=== PATIENT | male | born 1995 | race Caucasian/White ===

== ENCOUNTER 2016-10-29 11:16 | Emergency (ER) | payer MEDICAID ==
[2016-10-29 11:25] VITALS: BP 143/80
[2016-10-29] MEDS ORDERED: PENICILLIN G BENZATHINE 1.2 MILLION UNIT/2 ML DISP.SYRIN IM ONE (11:38)
--- NOTE | 2016-10-29 11:39 | ER Document Report ---
ED General - General Chief Complaint: Sore Throat Stated Complaint: THROAT PAIN,FEVER Mode of Arrival: Ambulatory Information source: Patient Notes: Patient is a 20 year old male who presents with sore throat that is worse when swallowing that has been present for the past 6 days. He states it has been worsening over the past 1-2 days. Reports associated congestion, cough and subjective intermittent fevers for the past 10 days, unsure of Tmax. He has tried OTC robitussin and sinus medication with no relief. Denies otalagia, difficulty swallowing, difficulty breathing, chest pain, n/v/d. Denies sick contacts TRAVEL OUTSIDE OF THE [place] IN LAST 30 DAYS: No - Related Data Allergies/Adverse Reactions: No Known Allergies Allergy (Unverified 10/29/16 11:24) Past Medical History - Social History Smoking Status: Unknown if Ever Smoked Family History: Reviewed & Not Pertinent Patient has suicidal ideation: No Patient has homicidal ideation: No Renal/ Medical History: Denies: Hx Peritoneal Dialysis Review of Systems - Review of Systems Constitutional: See HPI EENT: See HPI Cardiovascular: No symptoms reported Respiratory: No symptoms reported Gastrointestinal: No symptoms reported Genitourinary: No symptoms reported Male Genitourinary: No symptoms reported Musculoskeletal: No symptoms reported Skin: No symptoms reported Hematologic/Lymphatic: No symptoms reported Neurological/Psychological: No symptoms reported Physical Exam - Vital signs Vitals: Temp Pulse Resp BP Pulse Ox 98.4 F 102 H 20 143/80 H 96 10/29/16 11:24 10/29/16 11:24 10/29/16 11:24 10/29/16 11:24 10/29/16 11:24 Interpretation: Hypertensive, Tachycardic - Notes Notes: PHYSICAL EXAM: CONSTITUTIONAL: Alert and oriented, well-appearing and in no acute distress. Appears uncomfortable but non-toxic. HENT: Normocephalic, atraumatic. Ear canals without erythema or foreign body, TMs pearly euceda with good bony landmarks. Nares clear without erythema, septal hematoma or deviation, airway patent. Oropharynx erythematous with bilateral tonsillar exudate and enlargement, no malocclusion. Trachea midline. Uvula midline. Moist mucous membranes. EYES: Pupils equal round and reactive to light, EOM intact. Sclera anicteric, conjunctiva are normal. No entrapment. NECK: supple with b/l anterior cervical lymphadenopathy. No midline tenderness or paraspinous muscle spasms. ROM intact. HEART: Regular rate and rhythm without murmurs. LUNGS: CTAB and equal. No wheezes, rales or rhonchi. EXTREMITIES: Normal range of motion, no pitting edema. No cyanosis. Cap Refill < 3 seconds. SKIN: Warm and dry. Normal turgor. No rashes or lesions noted. Course - Re-evaluation Re-evalutation: 10/29/16 11:51 Patient seen and examined. Afebrile, non-toxic in appearance. Exam of oropharynx consistent with strep pharyngitis - noted bilateral tonsillar exudates and enlargement. Uvula midline, no malocclusion, no respiratory distress noted. Speaking in full sentences without difficulty. Offered IM Bicillin, patient requested oral antibiotics. At this time, will discharge with return precautions and follow-up recommendations. Verbal discharge instructions given at the bedside and opportunity for questions given. Medication warnings reviewed. Patient is in agreement with this plan and has verbalized understanding of return precautions and the need for primary care follow-up in the next 24-72 hours. - Vital Signs Vital signs: Temp Pulse Resp BP Pulse Ox 98.4 F 102 H 20 143/80 H 96 10/29/16 11:24 10/29/16 11:24 10/29/16 11:24 10/29/16 11:24 10/29/16 11:24 Discharge - Discharge Clinical Impression: Strep pharyngitis Condition: Stable Disposition: HOME, SELF-CARE Additional Instructions: SORE THROAT: Sore throats may be caused by viruses, bacteria, or fungi. Most are due to a virus, and must get better on their own. Bacterial sore throats, particularly those due to "strep," need treatment with antibiotics. If an antibiotic is prescribed, be sure to take the medication for a full 10 days. Failure to take the antibiotic can result in complications such as rheumatic fever. Sometimes, an injection of antibiotics is given instead of pills or liquid. This single "shot" is equal in effectiveness to the oral medication. To relieve symptoms, take acetaminophen for pain. Sip clear liquids frequently, or eat popsicles or ice chips. Anesthetic sprays or lozenges may help. Make sure the air in the room is not too dry. Avoid using decongestants or antihistamines. Call the doctor if there is no improvement in two days, or if you have difficulty breathing, increasing throat pain, high fever, rash, or frequent vomiting. STREP THROAT: Your sore throat is due to the streptococcus germ (strep throat). Strep throat usually makes you feel quite ill with fever and aches, headache, swollen sore throat, and tender bumps under the angles of the jaw. Strep throat requires antibiotic treatment. Although the sore throat may go away by itself, complications such as rheumatic fever, kidney disease, or throat abscess can occur. We usually prescribe antibiotics by mouth. Be sure to take the medicine until it's gone. If you stop early, the strep may come back. If you are vomiting, are severely ill, or can't remember to take pills, we can give you an antibiotic shot. Take acetaminophen or ibuprofen for pain and fever. Sip frequent clear liquids, or use popsicles or ice chips. Anesthetic sprays or lozenges may help. Make sure the air in the room is not too dry. Avoid using decongestants or antihistamines. Call the doctor if there is no improvement in three days, or if you have difficulty breathing, increasing throat pain, high fever, rash, or frequent vomiting. ORAL NARCOTIC MEDICATION: You have been given a prescription for pain control. This medication is a narcotic. It's best taken with food, as nausea can result if taken on an empty stomach. Don't operate machinery or drive within six hours of taking this medication. Do not combine this medicine with alcohol, or with any medication which can cause sedation (such as cold tablets or sleeping pills) unless you get permission from the physician. Narcotics tend to cause constipation. If possible, drink plenty of fluids and eat a diet high in fiber and fruits. Please be aware that prescription narcotics also have the potential for abuse. People become addicted to these medications because of the general sense of wellbeing that they induce. This feeling along with a significant reduction in tension, anxiety, and aggression provides a stimulating seductive quality to these drugs. Once your pain is under control, we encourage you to discard your unused narcotics. PENICILLIN V K: You have been given a prescription for Penicillin VK. Your physician has determined that this is the best antibiotic for your condition. Pen VK can be taken with meals, however more of the antibiotic gets into the bloodstream if it's taken on an empty stomach. Penicillin usually has no side effects. However, allergy to penicillins is common. If you have had an allergic reaction to any drug of the penicillin family, you should never take any other penicillin. Notify your doctor at once if you develop hives, itching, swelling, faintness, or shortness of breath. STEROID MEDICATION: You have been given a medicine of the cortisone/steroid class. This medication is used to control inflammation or allergy. It is usually only given for a short period of time, until the acute process subsides. There are usually no side effects from short-term use of cortisone-like medications. Some persons feel an increased sense of well-being and are not sleepy at bedtime. Long-term use of cortisone medications is best avoided, unless required for a severe condition. If your condition does not remit, or relapses after the course of corticosteroid medication, you should consult your physician. FOLLOW-UP CARE: If you have been referred to a physician for follow-up care, call the physician s office for an appointment as you were instructed or within the next two days. If you experience worsening or a significant change in your symptoms, notify the physician immediately or return to the Emergency Department at any time for re-evaluation. Prescriptions: Hydrocodone/Acetaminophen [Vicodin 5-300 mg Tablet] 1 tab PO ASDIR PRN #12 tab PRN Reason: Penicillin V Potassium [Penicillin Vk 500 mg Tablet] 500 mg PO BID #20 tablet Prednisone [Deltasone 20 mg Tablet] 3 tab PO DAILY 5 Days Forms: Elevated Blood Pressure, Return to Work
== END 2016-10-29 11:45 | disposition home or self-care (01) ==
LOC: ER 11:16
DX: J02.0 Streptococcal pharyngitis (principal); J02.9 Acute pharyngitis, unspecified; R50.9 Fever, unspecified; R07.0 Pain in throat; R09.81 Nasal congestion; R05 Cough
CPT/HCPCS: 99282

== ENCOUNTER 2018-02-05 15:17 | Emergency (ER) | payer SELFPAY ==
[2018-02-05] MEDS ORDERED: TETRACAINE HCL 0.5% OPH SOLN 2 ML OS ONE (16:27)
[2018-02-05] MEDS ORDERED: SULFAMETHOXAZOLE/TRIMETHOPRIM 800-160 MG TABLET PO ONE (17:06)
--- NOTE | 2018-02-05 17:13 | ER Document Report ---
ED Skin Rash/Insect Bite/Abscs - General Chief Complaint: Redness of Eye Stated Complaint: PAIN IN EYE Time Seen by Provider: 02/05/18 16:26 Mode of Arrival: Ambulatory Information source: Patient Notes: 22-year-old male presented ED for complaint of pain and swelling around the left eye for 2 days. He states he does not know what caused this area but he does know he is allergic to poison jonel and poison oak. He states he does have a history of MRSA. He states he does not remember any injuries. He has no pain in the actual eye. TRAVEL OUTSIDE OF THE [place] IN LAST 30 DAYS: No - HPI Patient complains to provider of: Tender/swollen area Onset: Other - 2 day Onset/Duration: Gradual Quality of pain: Sharp Severity: Moderate Pain Level: 4 Skin Character: Abscess Quality of rash: Painful Exacerbated by: Denies Relieved by: Denies Similar symptoms previously: Yes Recently seen / treated by doctor: No - Related Data Allergies/Adverse Reactions: No Known Allergies Allergy (Verified 02/05/18 15:22) Past Medical History - General Information source: Patient - Social History Smoking Status: Former Smoker - States he now uses a vapor cigarette Chew tobacco use (# tins/day): No Frequency of alcohol use: None Drug Abuse: None 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 Lives with: Family Family History: Reviewed & Not Pertinent Patient has suicidal ideation: No Patient has homicidal ideation: No - Past Medical History Cardiac Medical History: Reports: None Pulmonary Medical History: Reports: None EENT Medical History: Reports: None Neurological Medical History: Reports: None Endocrine Medical History: Reports: None Renal/ Medical History: Reports: None Malignancy Medical History: Reports None GI Medical History: Reports: None Musculoskeletal Medical History: Reports None Skin Medical History: Reports Hx MRSA Psychiatric Medical History: Reports: None Traumatic Medical History: Reports: None Infectious Medical History: Reports: Hx MRSA Surgical Hx: Negative Past Surgical History: Reports: None - Immunizations Hx Diphtheria, Pertussis, Tetanus Vaccination: Yes Review of Systems - Review of Systems Constitutional: No symptoms reported EENT: Other - Redness and swelling above the left eye with an cellulitis to the medial eyebrow area Cardiovascular: No symptoms reported Respiratory: No symptoms reported Gastrointestinal: No symptoms reported Genitourinary: No symptoms reported Male Genitourinary: No symptoms reported Musculoskeletal: No symptoms reported Skin: Other - Small cellulitis to the left eye medial to the upper Hematologic/Lymphatic: No symptoms reported Neurological/Psychological: No symptoms reported -: Yes All other systems reviewed and negative Physical Exam - Vital signs Vitals: Temp Pulse Resp BP Pulse Ox 98.4 F 111 H 19 144/88 H 98 02/05/18 15:25 02/05/18 15:25 02/05/18 15:25 02/05/18 15:25 02/05/18 15:25 Interpretation: Normal - General General appearance: Appears well, Alert - HEENT Head: Atraumatic, Tenderness - Redness swelling and tenderness medial to the left eyebrow with a tender swollen area. Eyes: Normal Conjunctiva: Normal Cornea: Normal Pupils: PERRL Ears: Normal External canal: Normal Tympanic membrane: Normal Sinus: Normal Nasal: Normal Mouth/Lips: Normal Mucous membranes: Normal Pharynx: Normal Neck: Normal - Respiratory Respiratory status: No respiratory distress Chest status: Nontender Breath sounds: Normal Chest palpation: Normal - Cardiovascular Rhythm: Regular Heart sounds: Normal auscultation Murmur: No - Abdominal Inspection: Normal Distension: No distension Bowel sounds: Normal Tenderness: Nontender Organomegaly: No organomegaly - Back Back: Normal, Nontender - Extremities General upper extremity: Normal inspection, Nontender, Normal color, Normal ROM , Normal temperature General lower extremity: Normal inspection, Nontender, Normal color, Normal ROM , Normal temperature, Normal weight bearing. No: Sepideh's sign - Neurological Neuro grossly intact: Yes Cognition: Normal Orientation: AAOx4 Wingo Coma Scale Eye Opening: Spontaneous [place]ingo Coma Scale Verbal: Oriented Kit Coma Scale Motor: Obeys Commands Wingo Coma Scale Total: 15 Speech: Normal Motor strength normal: LUE, RUE, LLE, RLE Sensory: Normal - Psychological Associated symptoms: Normal affect, Normal mood - Skin Skin Temperature: Warm Skin Moisture: Dry Skin Color: Normal Location of irregularity: Face Character of irregularity: Erythematous Irregularity with: Swelling, Tenderness, Warmth Course - Re-evaluation Re-evalutation: 02/05/18 22:04 Assessment the area around the eye and then had Dr. Gruber come and assess the area he agreed that it look like a cellulitis with a beginning of an abscess medial to the left eyebrow area patient was treated with Keflex and Bactrim instructed to soak the area with warm washcloth 2-3 times a day after washing the area well soap. Patient verbalized understanding of instructions and agreement with treatment plan. Patient to follow-up with his primary doctor. - Vital Signs Vital signs: Temp Pulse Resp BP Pulse Ox 98.1 F 100 18 142/82 H 98 02/05/18 17:25 02/05/18 17:25 02/05/18 17:25 02/05/18 17:25 02/05/18 17:25 Discharge - Discharge Clinical Impression: Cellulitis and abscess of face Condition: Stable Disposition: HOME, SELF-CARE Additional Instructions: CELLULITIS: You have an infection of your skin and underlying soft tissues called cellulitis. This is due to bacteria, which can enter through any break in the skin, or even through an irritated hair follicle. Untreated, cellulitis will usually worsen. Antibiotics are required. Usually, warm packs or warm soaks, and elevation of the infected area are recommended. You should start getting better within 24 to 36 hours. Most infections respond quickly to the right medication. Follow-up care is important, however, to check for abscess (boil) formation, unsuspected foreign body, or resistant infection. If you develop fever, chills, or if the area of infection is becoming rapidly more swollen or painful, call the doctor at once. MRSA CELLULITIS: You have an infection of your skin and underlying soft tissues called cellulitis. This is due to bacteria, which can enter through any break in the skin, or even through an irritated hair follicle. Untreated, cellulitis will usually worsen and may form an abscess which requires draining. Although many bacterial organisms can cause cellulitis and abscess formations, the most likely bacteria is Methicillin-Resistant Staph Aureus, or MRSA for short. Antibiotics are required. Usually, warm packs or warm soaks, and elevation of the infected area are recommended. You should start getting better within 24 to 36 hours. Most infections respond quickly to the right medication. Follow-up care is important, however, to check for abscess (boil) formation, unsuspected foreign body, or resistant infection. If you develop fever, chills, or if the area of infection is becoming rapidly more swollen or painful, call the doctor at once. TRIMETHOPRIM-SULFA: You have been given a prescription for trimethoprim-sulfa (TMS, Septra, Bactrim). This is a combination antibiotic of the sulfa class, often used for urinary tract infections, middle ear infections, bronchitis, shigella intestinal infection, and Pneumocystis pneumonia. TMS is usually well-tolerated. Occasional side effects include nausea and decreased appetite. Septra is not recommended for infants less than two months of age. Do not take this medication if you have experienced severe side effects or allergy to sulfa medicine. You should stop this medicine at once and contact your physician if you develop any rash, joint pain, shortness of breath, bruising, or jaundice ( yellow color in the skin), or if you develop any other new or unusual symptoms. Cephalexin The antibiotic you've been prescribed is a member of the cephalosporin class. This type of antibiotic covers a wide variety of infections, including those of the skin, lungs, and urinary tract. It's useful for staph infections. This antibiotic is slightly similar to the penicillin family. In rare cases , a person who is allergic to penicillin will also be allergic to this medication. If you have had a severe allergic reaction to penicillin, and have not taken this antibiotic since that time, notify your doctor. Antibiotics which cover many germs ("broad spectrum" antibiotics) are more likely to cause diarrhea or "yeast" infections. Women prone to vaginal yeast problems may suffer an attack after taking this antibiotic. In infants, oral thrush (white spots "stuck" on the cheek) or yeast diaper rash may result. See your doctor if these problems occur. Call at once if you develop itching, hives , shortness of breath, or lightheadedness. Soap Cleansing Gently wash the wound daily using a mild soap (like Ivory, Phisoderm, Neutrogena). Use warm water, rubbing gently until all debris, ooze, and crusting have been washed from the wound. Allow to dry briefly (about 10 minutes) after cleaning. Repeat this cleansing at least three times a day for the first two days and then once or twice a day. Apply warm compresses to the area by soaking a cloth in warm water and applying it to the area for about 15 minutes change in the call without as it cools with a clean cloth. FOLLOW-UP CARE: If you have been referred to a physician for follow-up care, call the physician s office for an appointment as you were instructed or within the next two days. If you experience worsening or a significant change in your symptoms, notify the physician immediately or return to the Emergency Department at any time for re-evaluation. Prescriptions: Cephalexin Monohydrate [Keflex 500 mg Capsule] 500 mg PO Q6H 5 Days capsule Sulfamethoxazole/Trimethoprim [Bactrim Ds Tablet] 1 each PO BID #20 tablet Forms: Elevated Blood Pressure, Smoking Cessation Education, Return to Work Referrals: YAKOV MENDOZA MD [ACTIVE STAFF] - Follow up as needed
[2018-02-05] MEDS ORDERED: CEPHALEXIN 500 MG CAPSULE PO ONE (17:15)
[2018-02-05 17:25] VITALS: BP 142/82
== END 2018-02-05 17:26 | disposition home or self-care (01) ==
LOC: ER 15:17
DX: L02.01 Cutaneous abscess of face (principal); L03.211 Cellulitis of face; F17.290 Nicotine dependence, other tobacco product, uncomplicated; Z86.14 Personal history of Methicillin resistant Staphylococcus aureus infection
CPT/HCPCS: 99283

== ENCOUNTER 2018-02-07 15:09 | Emergency (ER) | payer SELFPAY ==
[2018-02-07 15:34] VITALS: BP 135/81
--- NOTE | 2018-02-07 15:56 | ER Document Report ---
HPI - HPI Patient complains to provider of: Right brow swelling Onset: Other - 5 days Onset/Duration: Better Quality of pain: Achy Pain Level: 4 Context: Patient presents complaining of right brow swelling for the past 5 days. Patient states he was here recently and given antibiotics and that the swelling is improved. Patient denies any fever. Patient states that he would like a note for work so that he can keep the area clean as it continues to improve. Patient denies any eye pain or change in vision. Patient states that he squeezed on the skin lesion and some pus started to drain from the swollen area. Associated Symptoms: Other - Right brow swelling. denies: Fever Exacerbated by: Denies Relieved by: Denies Similar symptoms previously: No Recently seen / treated by doctor: Yes - ROS ROS below otherwise negative: Yes Systems Reviewed and Negative: Yes All other systems reviewed and negative - CONSTITUTIONAL Constitutional: DENIES: Fever - EENT EENT: REPORTS: Eye problems - R brow - GASTROINTESTINAL Gastrointestinal: DENIES: Nausea - DERM Skin Color: Erythema Past Medical History - General Information source: Patient - Social History Smoking Status: Current Every Day Smoker Smoking Education Provided: Yes Frequency of alcohol use: None Drug Abuse: None Lives with: Family Family History: Reviewed & Not Pertinent Patient has suicidal ideation: No Patient has homicidal ideation: No Renal/ Medical History: Denies: Hx Peritoneal Dialysis Skin Medical History: Reports Hx MRSA Infectious Medical History: Reports: Hx MRSA Surgical Hx: Negative - Immunizations Hx Diphtheria, Pertussis, Tetanus Vaccination: Yes Vertical Provider Document - CONSTITUTIONAL Agree With Documented VS: Yes Exam Limitations: No Limitations General Appearance: WD/WN, No Apparent Distress - INFECTION CONTROL TRAVEL OUTSIDE OF THE [place] IN LAST 30 DAYS: No - HEENT HEENT: Atraumatic, Normocephalic Notes: Swelling to medial aspect of right brow with mild overlying erythema - NECK Neck: Normal Inspection, Supple - RESPIRATORY Respiratory: Breath Sounds Normal, No Respiratory Distress - CARDIOVASCULAR Cardiovascular: Regular Rate, Regular Rhythm - BACK Back: Normal Inspection - MUSCULOSKELETAL/EXTREMETIES Musculoskeletal/Extremeties: MAEW - NEURO Level of Consciousness: Awake, Alert, Appropriate Motor/Sensory: No Motor Deficit - DERM Integumentary: Warm, Dry, Abscess - Fluctuant abscess to right medial brow area Course - Vital Signs Vital signs: Temp Pulse Resp BP Pulse Ox 98.3 F 84 16 135/81 H 96 07/18/18 15:33 02/07/18 15:33 02/07/18 15:33 02/07/18 15:33 02/07/18 15:33 Procedures - Incision and Drainage Right Face Type: Simple Anesthetic type: 1% Lidocaine I&D procedure: Betadine prep applied Incision Method: Incision made with needle Amount/type of drainage: mod amount of purulent drainage Adult Head Front/Back picture: 1 - abscess Discharge - Discharge Clinical Impression: Cellulitis and abscess of face, Encounter for incision and drainage procedure Condition: Stable Disposition: HOME, SELF-CARE Instructions: Abscess ([facility]), Cephalexin ([facility]), Post Incision and Drainage, Trimethoprim-Sulfa ([facility]) Additional Instructions: Return immediately for any new or worsening symptoms Followup with your primary care provider, call tomorrow to make a followup appointment Warm compresses to the area frequently Continue your antibiotics as previously prescribed Prescriptions: Naproxen [Naprosyn 250 Nmg Tablet] 1 tab PO BID #14 tablet Forms: Smoking Cessation Education, Return to Work Referrals: [facility] [Provider Group] - Follow up as needed
== END 2018-02-07 16:29 | disposition home or self-care (01) ==
LOC: ER 15:09
PROC: 0H91XZZ Drainage of Face Skin, External Approach (ICD-10-PCS; principal; 2018-02-07)
DX: L03.211 Cellulitis of face (principal); F17.210 Nicotine dependence, cigarettes, uncomplicated; Z86.14 Personal history of Methicillin resistant Staphylococcus aureus infection
CPT/HCPCS: 99283

== ENCOUNTER 2018-03-28 20:56 | Emergency (ER) | payer SELFPAY ==
[2018-03-28] MEDS ORDERED: ONDANSETRON ODT 4 MG TAB (6 TAB/ER DISP) PO PRN (23:24)
--- NOTE | 2018-03-28 23:30 | ER Document Report ---
HPI - HPI Pain Level: 3 Notes: Patient is a 22-year-old male no significant past medical history who presents to the ED complaining of generalized sunburn from working outside today, nausea , and headache. Patient states that his headache and his nausea have since resolved since leaving work. Patient states that he texted his boss that he wanted to stay home from work tomorrow because of his sunburn and feeling a little dehydrated. Patient states that he was going to get written up if he did not go to work so he came to the emergency department to obtain a work note. Patient states that it that is his primary reason for coming. He is otherwise feeling much better. Patient has fair skin and did not put any sunblock on today. Denies any drug allergies. He is eating and drinking without any difficulties. He is urinating normally and having normal bowel movements. He has not been having any muscle spasms. Denies any current headache, fever, head injury, neck pain, changes in vision/speech/mentation/ hearing, URI, sore throat, chest pain, palpitations, syncope, cough, shortness of breath, wheeze, dyspnea, abdominal pain, vomiting/diarrhea, urinary retention , dysuria, hematuria, loss of control of bowel or bladder, numbness/tingling, saddle anesthesia, muscle paralysis/weakness, or rash. - ROS Systems Reviewed and Negative: Yes All other systems reviewed and negative Past Medical History - Social History Smoking Status: Unknown if Ever Smoked Family History: Reviewed & Not Pertinent Renal/ Medical History: Denies: Hx Peritoneal Dialysis Skin Medical History: Reports Hx MRSA Infectious Medical History: Reports: Hx MRSA - Immunizations Hx Diphtheria, Pertussis, Tetanus Vaccination: Yes Vertical Provider Document - CONSTITUTIONAL Agree With Documented VS: Yes Notes: PHYSICAL EXAMINATION: GENERAL: Well-appearing, well-nourished and in no acute distress. HEAD: Atraumatic, normocephalic. EYES: Pupils equal round and reactive to light, extraocular movements intact, sclera anicteric, conjunctiva are normal. ENT: Nares patent and without discharge. oropharynx clear without exudates. No tonsilar hypertrophy or erythema. Moist mucous membranes. NECK: Normal range of motion, supple without lymphadenopathy LUNGS: Breath sounds clear to auscultation bilaterally and equal. No wheezes rales or rhonchi. HEART: Regular rate and rhythm without murmurs, rubs, gallops. ABDOMEN: Soft, nontender, nondistended abdomen. No guarding, no rebound. No masses appreciated. Normal bowel sounds present. No CVA tenderness bilaterally. Musculoskeletal: FROM to passive/active. Strength 5+/5. Extremities: No cyanosis, clubbing, or edema b/l. Peripheral pulses 2+. Capillary refill less than 3 seconds. NEUROLOGICAL: Cranial nerves grossly intact. Normal speech, normal gait. Normal sensory, motor exams PSYCH: Normal mood, normal affect. SKIN: 1st degree radiation (from sun) gutierrez noted to the arms, superior chest, around neck, and on face. No evidence of 2nd degree or worse gutierrez. + blanching. No blistering. - INFECTION CONTROL TRAVEL OUTSIDE OF THE [place] IN LAST 30 DAYS: No Course - Re-evaluation Re-evalutation: 03/28/18 23:27 Patient is an afebrile, well-hydrated, 22-year-old male who presents to the ED with a generalized sunburn, first-degree. Vitals are acceptable without any significant tachycardia, tachypnea, or hypoxia. PE is otherwise unremarkable. His headache and nausea have since resolved. Patient states that he is only here for a work note at this time. No labs or imaging warranted at this time based on H&P. Low suspicion for any sepsis, meningitis, severe dehydration, rhabdo, or severe skin gutierrez. I did stress the importance of sunblock and covering up the skin when he is working as he is very fair skinned. I will send him home with a Zofran dispense pack as well. Recheck with your PCM in 3- 5 days. Return to the ED with any worsening/concerning symptoms otherwise as reviewed in discharge. Work note given for tomorrow. Patient is in agreement. - Vital Signs Vital signs: Temp Pulse Resp BP Pulse Ox 97.6 F 93 16 138/83 H 100 03/28/18 21:00 03/28/18 21:00 03/28/18 21:00 03/28/18 21:03/28/18 21:00 Discharge - Discharge Clinical Impression: Sunburn Condition: Stable Disposition: HOME, SELF-CARE Instructions: Sunburn ([facility]) Additional Instructions: Maintain adequate fluid intake, push hydration Tylenol/Motrin as needed Keep skin covered when working outside and/or make sure you are using sunblock Monitor for any worsening symptoms Skin moisturizers as needed Recheck with your PCM in 3-5 days Return to the ED with any worsening symptoms and/or development of fever, headache, chest pain, palpitations, syncope, shortness of breath, trouble breathing, abdominal pain, n/v/d, blood in stool/urine, loss of control of bowel /bladder, urinary retention, muscle weakness/paralysis, saddle anesthesia, numbness/tingling, or other worsening symptoms that are concerning to you. Forms: Return to Work, Elevated Blood Pressure Referrals: [facility] [Provider Group] - Follow up as needed [facility] [Provider Group] - Follow up as needed
[2018-03-29 01:15] VITALS: BP 131/74
== END 2018-03-28 23:50 | disposition home or self-care (01) ==
LOC: ER 20:56
DX: L55.0 Sunburn of first degree (principal); R11.0 Nausea; R51 Headache
CPT/HCPCS: 99282